=== PATIENT | female | born 1970 | race Caucasian/White ===

== ENCOUNTER → 2019-08-13 13:15 | Outpatient (BNVA) | payer MEDICARE, MEDICAID, SELFPAY | PROVIDERS: Family Provider Internal Medicine; PCP Internal Medicine; Visit Provider Nurse Practitioner Family | DX: R50.9 Fever, unspecified (principal); R53.83 Other fatigue; Z91.09 Other allergy status, other than to drugs and biological substances; K90.41 Non-celiac gluten sensitivity | CPT/HCPCS: 80053; 81001; 82607; 82728; 82746; 83550; 84443; 85025; 85651 ==

== ENCOUNTER 2019-09-03 13:43 | Outpatient (CLI) | payer MEDICARE, MEDICAID, SELFPAY ==
--- NOTE | 2019-09-03 14:00 | MM_ITS ---
WS: [id number] BILATERAL SCREENING DIGITAL MAMMOGRAM WITH CAD HISTORY: Screening mammogram. COMPARISON: 11/20/2015 Bilateral CC and MLO views submitted. Computer aided detection analyzed. Breast composition: There are scattered areas of fibroglandular density. No suspicious masses, microc alcifications or architectural distortion. MM/[id number] IMPRESSION: BI-RADS: 1-Negative FOLLOW UP: 1 Year Follow-up
== END 2019-09-03 13:44 | disposition home or self-care (01) ==
LOC: RADSHAW 13:48
PROVIDERS: PCP Internal Medicine; Visit Provider Internal Medicine
DX: Z12.31 Encounter for screening mammogram for malignant neoplasm of breast (principal)
CPT/HCPCS: 77067

== ENCOUNTER 2019-10-17 10:21 | Outpatient (CLI) | payer MEDICARE, MEDICAID, SELFPAY ==
--- NOTE | 2019-10-17 10:00 | XRR_ITS ---
PROCEDURE INFORMATION: Exam: XR Abdomen, 1 View Exam date and time: 10/17/2019 10:44 AM Age: 49 years old Clinical indication: Condition or disease; Kidney or ureter condition; Calculus (stone) in kidney; Prior surgery; Surgery date: 6+ months; Surgery type: Lithotripsy; Patient HX: HX of kidney stone x 2 years; Additional info: Renal stone TECHNIQUE: Imaging protocol: XR of the abdomen. Views: Frontal supine view of the abdomen. 1 View. COMPARISON: CR XR KUB [id number] 06/19/2018 8:31 AM FINDINGS: Gastrointestinal tract: Unremarkable. No bowel dilation. Vasculature: Calcified phleboliths are present in the lower pelvis bilaterally. Bones/joints: No acute abnormality identified. Soft tissues: No urinary tract calculi identified. XR/XR KUB [id number] IMPRESSION: 1. No acute abdominal or pelvic abnormality identified. 2. No urinary tract calculi identified.
== END 2019-10-17 10:22 | disposition home or self-care (01) ==
LOC: RAD 10:21
PROVIDERS: PCP Internal Medicine; Visit Provider Urology
DX: N20.0 Calculus of kidney (principal)
CPT/HCPCS: 74018; 81001

== ENCOUNTER → 2020-06-11 15:40 | Outpatient (BNVA) | payer MEDICARE, MEDICAID, SELFPAY | PROVIDERS: PCP Internal Medicine; Visit Provider Internal Medicine | DX: R10.31 Right lower quadrant pain (principal); N39.0 Urinary tract infection, site not specified; R30.0 Dysuria | CPT/HCPCS: 81003 ==

== ENCOUNTER 2021-01-08 15:23 | Outpatient (CLI) | payer MEDICARE, MEDICAID, SELFPAY ==
--- NOTE | 2021-01-08 15:42 | MM_ITS ---
WS: [id number] BILATERAL DIGITAL SCREENING MAMMOGRAPHY WITH CAD CLINICAL INFORMATION: SCREENING HISTORY: Screening mammogram. No current complaints. COMPARISON: September 03, 2019 TECHNIQUE: Bilateral CC and MLO views. FINDINGS: Scattered fibroglandular densities bilaterally. No suspicious focal mass, asymmetry, calcifications, or architectural distortion. No evidence of malignancy. MM/[place] [id number] IMPRESSION: BI-RADS: 1-Negative FOLLOW UP: 1 Year Follow-up Recommend return to annual screening mammography.
== END 2021-01-08 15:24 | disposition home or self-care (01) ==
PROVIDERS: PCP Internal Medicine; Visit Provider Nurse Practitioner Women's Health
DX: Z12.31 Encounter for screening mammogram for malignant neoplasm of breast (principal)
CPT/HCPCS: 77067

== ENCOUNTER → 2021-04-01 12:24 | Outpatient (BNVA) | payer MEDICARE, MEDICAID, SELFPAY | PROVIDERS: PCP Internal Medicine; Visit Provider Registered Nurse Neonatal Intensive Care | DX: Z20.822 Contact with and (suspected) exposure to COVID-19 (principal) | CPT/HCPCS: 87635 ==

== ENCOUNTER 2021-10-20 13:14 | Outpatient (CLI) | payer MEDICARE, MEDICAID, SELFPAY ==
--- NOTE | 2021-10-20 13:15 | XR_ITS ---
WS: [email or web address] XR KUB [id number] REASON FOR EXAM: Renal Calculus FINDINGS: Possibly there is a 2 mm calculus overlying the lower pole of the right kidney, however this is a foc al. No other urinary calculi are identified. No other significant abnormality of the abdomen or pelvis. XR/XR KUB [id number] IMPRESSION: Possible small renal calculus as above.
== END 2021-10-20 13:15 | disposition home or self-care (01) ==
PROVIDERS: PCP Internal Medicine; Visit Provider Urology
DX: N20.0 Calculus of kidney (principal); N20.9 Urinary calculus, unspecified
CPT/HCPCS: 74018; 81003; 99213

== ENCOUNTER 2022-11-29 10:28 | Outpatient (CLI) | payer MEDICARE, SELFPAY ==
--- NOTE | 2022-11-29 10:39 | XR_ITS ---
WS: [email or web address] Exam: XR thoracic spine 3V* [id number] Date/Time of Exam: 11/29/2022 10:41 AM Reason For Exam: PAIN IN THORACIC SPINE No acute fracture or dislocation. No significant scoliosis. Normal paraspinal soft tissue structures. IMPRESSION: 1. No fracture or other significant finding.
== END 2022-11-29 10:29 | disposition home or self-care (01) ==
PROVIDERS: PCP Internal Medicine; Visit Provider Nurse Practitioner
DX: M54.6 Pain in thoracic spine (principal)
CPT/HCPCS: 72072

== ENCOUNTER → 2022-12-28 10:47 | Outpatient (BNVA) | payer MEDICARE, SELFPAY | PROVIDERS: PCP Internal Medicine; Referring Provider Nurse Practitioner Women's Health; Visit Provider Surgery | DX: Z12.11 Encounter for screening for malignant neoplasm of colon (principal); Z12.12 Encounter for screening for malignant neoplasm of rectum | CPT/HCPCS: 99024; 99203 ==

== ENCOUNTER 2022-12-29 14:50 | Outpatient (CLI) | payer MEDICARE, SELFPAY ==
--- NOTE | 2022-12-29 14:58 | MM_ITS ---
WS: [email or web address] BILATERAL 3D TOMOSYNTHESIS DIGITAL SCREENING MAMMOGRAPHY WITH CAD CLINICAL INFORMATION: Z12.39 - Encounter for other screening for malignant neop... HISTORY: Screening mammogram. No current complaints. COMPARISON: 2020 TECHNIQUE: Bilateral CC and MLO views. FINDINGS: Scattered fibroglandular densities bilaterally. No suspicious focal mass, asymmetry, calcifications, or architectural distortion. No evidence of malignancy. IMPRESSION: MM/[place] [id number] BI-RADS: 1-Negative FOLLOW UP: 1 Year Follow-up Recommend return to annual screening mammography.
== END 2022-12-29 14:51 | disposition home or self-care (01) ==
PROVIDERS: PCP Internal Medicine; Visit Provider Nurse Practitioner Women's Health
DX: Z12.31 Encounter for screening mammogram for malignant neoplasm of breast (principal)
CPT/HCPCS: 77063; 77067

== ENCOUNTER 2022-12-30 12:56 | Outpatient (CLI) | payer MEDICARE, SELFPAY ==
--- NOTE | 2022-12-30 13:05 | MR_ITS ---
WS: [email or web address] MRI THORACIC SPINE WITHOUT CONTRAST TECHNIQUE: Sagittal T1, T2 and STIR imaging. Axial T2 imaging. Noncontrast imaging obtained. CLINICAL INFORMATION: PAIN IN THORACIC SPINE COMPARISON: None. FINDINGS: Mild thoracic curve. Mild thoracic kyphosis. No acute compression fractures. Cord signal is normal. N o high-grade central canal stenosis. Incidental hemangioma T4 vertebral body. Mild facet arthropathy lower thoracic spine. No significant disc extrusions or protrusions. Mild facet arthropathy lower thoracic spine. Tiny RIGH T foraminal protrusion T10-11 with mild RIGHT foraminal narrowing. Small LEFT thyroid nodule measurin g 4 mm. Adrenal glands are normal. IMPRESSION: 1. Mild thoracic curve. Mild thoracic kyphosis. No acute compression fractures. 2. Mild facet arthropathy lower thoracic spine. 3. Tiny RIGHT foraminal protrusion T10-11 with mild RIGHT T10-11 foraminal narrowing. 4. No significant central canal stenosis. Cord signal is normal. 5. Tiny disc protrusions in the cervical spine at C5-C6 and C6-C7.
== END 2022-12-30 12:57 | disposition home or self-care (01) ==
PROVIDERS: PCP Internal Medicine; Visit Provider Anesthesiology Pain Medicine
DX: M40.294 Other kyphosis, thoracic region (principal); M51.24 Other intervertebral disc displacement, thoracic region; M50.222 Other cervical disc displacement at C5-C6 level
CPT/HCPCS: 72146

== ENCOUNTER 2023-09-15 08:08 | Day surgery (SDC) | payer MEDICARE, SELFPAY ==
[2023-09-15 08:30] VITALS: BP 145/104; PULSE 94; RESP 18; TEMP 36.1; O2SAT 96; BMI 34.0
--- NOTE | 2023-09-15 08:35 | P.ANESASSM_ITS ---
Pre-Anesthetic Assessment Height/Weight: Height 1.65 m Preop Diagnosis: need for screening colonoscopy Operation Date: 09/15/23 09:15 Proposed Procedures p [id number] Colonoscopy G0121 Encounter for screening for malignant neoplasm of colon Z12.12(Not Applicable) - Dylan Post MD Familial anesthetic complications: none Was Beta Stephanie taken within 24 hours: N/A Was Clonidine taken within 24 hours: N/A Social No alcohol and No tobacco Exam alert, oriented x 3 and regular rate & rhythm Airway Mallampati: Class I Dentition: full History/ROS No significant history except as noted Pulmonary None reported CV/HEM Hypertension None reported Hepatic None reported GI None reported Metabolic None reported Musc/skel Fibromyalgia Neuropsych None reported Anesthetic Plan ASA status: 2 Anesthesia: Anesthesia Evaluation and MAC Risk of > 500 ml blood loss (7ml/kg in children): No Medications/Allergies Home Medications Medication Instructions Recorded Confirmed Last Taken Type acetaminophen 500 mg tablet 500 mg PO BID PRN Pain 07/27/19 09/15/23 09/15/23 07:30 History (Tylenol Extra Strength) vitamin E mixed 400 unit capsule 1 unit PO DAILY 07/27/19 09/15/23 09/14/23 History fluticasone propionate 50 2 spray intranasal DAILY #9.9 mL 08/13/19 09/15/23 09/14/23 Rx mcg/actuation nasal spray,suspension cetirizine 10 mg tablet (Zyrtec) 10 mg PO DAILY #30 tabs 10/03/19 09/15/23 09/14/23 Rx magnesium oxide 400 mg PO QDAY #30 caps 06/02/20 09/15/23 09/14/23 Rx albuterol sulfate 90 mcg/actuation 2 puff inhalation Q6H PRN 04/16/21 09/15/23 3 Months Ago Rx aerosol inhaler (ProAir HFA) shortness of breath or wheezing ~06/15/23 #6.7 grams meloxicam 15 mg tablet 15 mg PO DAILY #90 tabs 06/11/21 09/15/23 09/14/23 Rx duloxetine 60 mg capsule,delayed 60 mg PO QDAY #90 caps 06/16/21 09/15/23 09/14/23 Rx release famotidine 40 mg tablet 40 mg PO BID #180 tabs 09/01/21 09/15/23 09/14/23 Rx pseudoephedrine HCl 120 mg 120 mg PO Q12H PRN nasal 10/19/21 09/15/23 09/14/23 Rx tablet,extended release (Sudafed congestion #60 tabs 12 Hour) tramadol 50 mg tablet 50 mg PO Q6H PRN pain #70 tabs 02/08/22 09/15/23 09/15/23 07:30 Rx balance of nature 1 cap PO DAILY 11/30/22 09/15/23 09/14/23 History conjugated estrogens 0.625 mg/gram 0.3125 mg vaginal .twice per week 11/30/22 09/15/23 1 Year Ago Rx vaginal cream (Premarin) #30 grams ~09/14/22 baclofen 10 mg tablet 10 mg PO TID 09/13/23 09/15/23 09/14/23 History evening primrose oil 500 mg capsule 500 mg PO DAILY 09/13/23 09/15/23 09/14/23 History melatonin 10 mg tablet 10 mg PO QPM 09/13/23 09/15/23 09/14/23 History milnacipran 100 mg tablet (Savella) 100 mg PO BID 09/13/23 09/15/23 09/14/23 History Allergies Allergy/AdvReac Type Severity Reaction Status Date / Time erythromycin base Allergy unknown Verified 09/13/23 13:24 Sulfa (Sulfonamide Allergy unknown Verified 09/13/23 13:24 Antibiotics) sulfamethoxazole Allergy unknown Verified 09/13/23 13:24 [From Bactrim] trimethoprim [From Bactrim] Allergy unknown Verified 09/13/23 13:24 PFSH Anesthesia Medical History Dyspareunia Dyspepsia Environmental allergies Essential (primary) hypertension resolved with weight loss Fibromyalgia Gluten enteropathy No pertinent past medical history neghx: htn,dm,thyroid,dvt/pe PCP: Dr. Lugo Renal calculus, right Moderate size right renal pelvic stone treated 2017 with complete resolution after ESWL Stone risk reduction strategies employed and discussed. Surgical History H/O LEEP (~2008) 11/05/2008. Office LEEP. Dr. Moisés Gan, any a [facility], [facility]--precancerous History of D&C (04/27/12) D&C. Dr. Bettencourt. [facility] [place], [facility]. Menometrorrhagia, anemia. History of foot surgery History of hysterectomy (~09/21/12) Robotic laparoscopic hysterectomy, BSO. Dr. Syd Ac, [facility], [facility]. Left complex ovarian mass. Endometriosis. Non-cancerous reasons. History of inguinal hernia repair Status post placement of ureteral stent Family History Father Diabetes Mother Family history of thyroid problem Hypertension Hyperlipidemia Grandmother Uterine cancer Paternal grandmother--dx age unknown Breast cancer Maternal grandmother--dx age unknown Grandfather Heart disease Maternal Denies family history of Colon cancer Ovarian cancer Stroke Data Anesthesia Cardiac Studies: No Data to Display
--- NOTE | 2023-09-15 08:35 | W.PM.OPSFHP ---
Same Day Surgery H&P Indication for Procedure/HPI DATE OF PROCEDURE: September 15, 2023 CHIEF COMPLAINT/INDICATIONFOR SURGICAL PROCEDURE: need for screening colonoscopy PREOP DIAGNOSIS: need for screening colonoscopy PLANNED PROCEDURE: Operation Date: 09/15/23 09:15 Pro[place] Procedures p [id number] Colonoscopy G0121 Encounter for screening for malignant neoplasm of colon Z12.12(Not Applicable) - Dylan Post MD Medications/Allergies* Home Medications Medication Instructions Recorded Confirmed Type acetaminophen 500 mg tablet 500 mg PO BID PRN Pain 07/27/19 09/15/23 History (Tylenol Extra Strength) vitamin E mixed 400 unit capsule 1 unit PO DAILY 07/27/19 09/15/23 History balance of nature 1 cap PO DAILY 11/30/22 09/15/23 History baclofen 10 mg tablet 10 mg PO TID 09/13/23 09/15/23 History evening primrose oil 500 mg capsule 500 mg PO DAILY 09/13/23 09/15/23 History melatonin 10 mg tablet 10 mg PO QPM 09/13/23 09/15/23 History milnacipran 100 mg tablet (Savella) 100 mg PO BID 09/13/23 09/15/23 History Allergies/Adverse Reactions Allergy/AdvReac Type Severity Reaction Status Date / Time erythromycin base Allergy unknown Verified 09/13/23 13:24 Sulfa (Sulfonamide Allergy unknown Verified 09/13/23 13:24 Antibiotics) sulfamethoxazole Allergy unknown Verified 09/13/23 13:24 [From Bactrim] trimethoprim [From Bactrim] Allergy unknown Verified 09/13/23 13:24 Pertinent History/Comorbid Conditions* Medical History (Updated 12/28/22 @ 13:41 by Dylan Post MD) No pertinent past medical history neghx: htn,dm,thyroid,dvt/pe PCP: Dr. Lugo Dyspepsia Renal calculus, right Moderate size right renal pelvic stone treated 2017 with complete resolution after ESWL Stone risk reduction strategies employed and discussed. Dyspareunia Environmental allergies Essential (primary) hypertension resolved with weight loss Fibromyalgia Gluten enteropathy Surgical History (Updated 09/12/19 @ 15:07 by Jackelyn Rust APN, WHNP) H/O LEEP (~2008) 11/05/2008. Office LEEP. Dr. Moisés Gan, any a [facility]--precancerous History of hysterectomy (~09/21/12) Robotic laparoscopic hysterectomy, BSO. Dr. Syd Ac, [facility], [facility]. Left complex ovarian mass. Endometriosis. Non-cancerous reasons. Status post placement of ureteral stent History of inguinal hernia repair History of foot surgery History of D&C (04/27/12) D&C. Dr[place]court[place] [facility] [place] [facility]. Menometrorrhagia, anemia. Family History (Updated 10/21/21 @ 15:14 by Chanda Flor) Diabetes Father Heart disease Grandfather Maternal Hyperlipidemia Mother Breast cancer Grandmother Maternal grandmother--dx age unknown Family history of thyroid problem Mother Hypertension Mother Uterine cancer Grandmother Paternal grandmother--dx age unknown Denies family history of Colon cancer Ovarian cancer Stroke Pertinent Exam Findings alert, oriented x 3 and clear to auscultation bilaterally Recommendations Surgery/Procedure today Coding Level of Care Code Acute Code for Chg Fwd
[2023-09-15] MEDS: sodium chloride 0.9% 1,000 ML 30 ML IV (08:43)
[2023-09-15 09:15] VITALS: BP 121/76; PULSE 90; RESP 16; TEMP 36.2; O2SAT 96
[2023-09-15 09:37] VITALS: BP 130/82; PULSE 83; RESP 18; O2SAT 100
--- NOTE | 2023-09-15 10:00 | ANE.PACU2 ---
Inpatient post-anesthesia follow up: Airway intact: Yes Vital signs: Temperature 97.1 F Pulse Rate 83 Respiratory Rate 18 Blood Pressure 130/82 Pulse Oximetry 100 Oxygen Delivery Me thod Room Air Oxygen Flow Rate Fraction of Inspir ed Oxygen Hydration adequate: Yes Nausea and vomiting: No Pain level: 0 Mental status: Baseline
== END 2023-09-15 09:55 | disposition home or self-care (01) ==
PROVIDERS: PCP Internal Medicine; Visit Provider Surgery
PROC: 0DJD8ZZ Inspection of Lower Intestinal Tract, Via Natural or Artificial Opening Endoscopic (ICD-10-PCS; CPT 45378; principal; 2023-09-15 09:15)
DX: Z12.11 Encounter for screening for malignant neoplasm of colon (principal); K57.30 Diverticulosis of large intestine without perforation or abscess without bleeding; I10 Essential (primary) hypertension; M79.7 Fibromyalgia
CPT/HCPCS: G0121; J2704; J7030

== ENCOUNTER 2024-01-26 13:02 | Outpatient (CLI) | payer MEDICARE, SELFPAY ==
--- NOTE | 2024-01-26 13:00 | XR_ITS ---
WS: [email or web address] DEXA (DUAL ENERGY X-RAY ABSORPTIOMETRY) Bone mineral density was performed using a Handshake machine. HISTORY: Z78.0 - Asymptomatic menopausal state COMPARISON: None available. Lumbar spine BMD (L1-L4): 0.900 g/cm2 T score: -2.3 Z score: -2.5 Total hip BMD: Left: 0.827 g/cm2. T score: -1.4 Z score: -1.5 Right: 0.873 g/cm2. T score: -1.1 Z score: -1.1 10 year probability of a major osteoporotic fracture is 6.0%. XR/XR DEXA axial skeleton* [id number] IMPRESSION: OSTEOPENIA based upon the WHO classification for females.
--- NOTE | 2024-01-26 13:30 | MM_ITS ---
WS: [id number] BILATERAL SCREENING DIGITAL TOMOSYNTHESIS MAMMOGRAM WITH CAD HISTORY: Z12.39 - Encounter for other screening for malignant neop... COMPARISON: 12/29/2022, 01/08/2021 Bilateral CC and MLO views with tomosynthesis and synthetic mammography submitted. Computer aided det ection analyzed. Breast composition: There are scattered areas of fibroglandular density. No suspicious masses, microc alcifications or architectural distortion. MM/MM scr BI tomosynthesis [id number] IMPRESSION: BI-RADS: 2 - Benign. FOLLOW UP: 1 Year Follow-up
== END 2024-01-26 13:03 | disposition home or self-care (01) ==
PROVIDERS: PCP Internal Medicine; Visit Provider Nurse Practitioner Women's Health
DX: Z12.31 Encounter for screening mammogram for malignant neoplasm of breast (principal); Z78.0 Asymptomatic menopausal state; R92.323 Mammographic fibroglandular density, bilateral breasts; M85.80 Other specified disorders of bone density and structure, unspecified site
CPT/HCPCS: 77063; 77067; 77080

== ENCOUNTER → 2025-01-17 15:58 | Outpatient (BNVA) | payer MEDICARE, SELFPAY | PROVIDERS: Visit Provider Nurse Practitioner Women's Health | DX: M79.7 Fibromyalgia (principal); E89.41 Symptomatic postprocedural ovarian failure | CPT/HCPCS: 82306; 82670 ==

== ENCOUNTER 2025-02-25 12:58 | Outpatient (CLI) | payer MEDICARE, SELFPAY ==
--- NOTE | 2025-02-25 15:00 | MM_ITS ---
WS: [email or web address] BILATERAL 3D TOMOSYNTHESIS DIGITAL SCREENING MAMMOGRAPHY WITH CAD CLINICAL INFORMATION: Z12.31 - Encounter for screening mammogram for malignant ... HISTORY: Screening mammogram. No current complaints. COMPARISON: 2023 TECHNIQUE: Bilateral CC and MLO views. FINDINGS: Scattered fibroglandular densities bilaterally. No suspicious focal mass, asymmetry, calcifications, or architectural distortion. No evidence of malignancy. MM/MM scr tomosynthesis [id number] IMPRESSION: DENSITY: There are scattered areas of fibroglandular density. BI-RADS: 1 - Negative. FOLLOW UP: 1 Year Follow-up Recommend return to annual screening mammography.
== END 2025-02-25 12:59 | disposition home or self-care (01) ==
LOC: RAD 12:59
PROVIDERS: PCP Internal Medicine; Visit Provider Nurse Practitioner Women's Health
DX: Z12.31 Encounter for screening mammogram for malignant neoplasm of breast (principal); R92.323 Mammographic fibroglandular density, bilateral breasts
CPT/HCPCS: 77063; 77067